=== PATIENT | male | born 1960 | race Caucasian/White ===

== ENCOUNTER 2017-01-08 16:14 | Outpatient (CLI) | payer BC ==
--- NOTE | 2017-01-08 16:43 | Diagnostic Imaging Report ---
Indication: COUGH Technique: 2 views of the chest Comparison: none. Findings: Lungs and pleural spaces are clear. Heart size is normal. Bones are unremarkable.. Impression: No acute process
== END 2017-01-08 18:14 | disposition home or self-care (01) ==
LOC: RAD 16:14
DX: Z01.818 Encounter for other preprocedural examination (principal); R05 Cough
CPT/HCPCS: 71020

== ENCOUNTER 2017-11-24 11:42 | Outpatient (CLI) | payer BC ==
--- NOTE | 2017-11-24 13:33 | Diagnostic Imaging Report ---
Indication: Cough Comparison: 01/08/2017 2 views of the chest obtained. Findings: Cardiomediastinal silhouette and pulmonary vascularity are within normal limits for age. The diaphragmatic contour is smooth and costophrenic angles are sharp. No pleural effusions are identified. The bones are unremarkable. Impression: No acute disease
== END 2017-11-24 13:42 | disposition home or self-care (01) ==
LOC: RAD 11:42
DX: Z01.818 Encounter for other preprocedural examination (principal); Z01.812 Encounter for preprocedural laboratory examination; R05 Cough
CPT/HCPCS: 71046

== ENCOUNTER 2017-12-15 09:06 | Day surgery (SDC) | payer BC ==
[~2017-12-15] VITALS: Ht 177.8 cm; Wt 77.1 kg
[2017-12-15] VITALS (7 sets, daily range): BP systolic 113–122; BP diastolic 61–74
--- NOTE | 2017-12-15 07:10 | Pre-Procedure Note/Attestation ---
Pre-Procedure Note/Attestation Complete Prior to Procedure Planned Procedure: right Procedure Narrative: rt knee scope, lateral meniscectomy, chondroplasty Indications for Procedure Pre-Operative Diagnosis: rt knee lateral meniscus tear Attestation I attest that I discussed the nature of the procedure; its benefits; risks and complications; and alternatives (and the risks and benefits of such alternatives ), prior to the procedure, with the patient (or the patient's legal business office representative). I attest that, if there was a reasonable possibility of needing a blood transfusion, the patient (or the patient's legal business office representative) was given the [facility] standardized written summary, pursuant to the Lazarus Christofer Blood Safety Act ([place] Health and Safety Code # 1645, as amended). I attest that I re-evaluated the patient just prior to the surgery and that there has been no change in the patient's H&P, except as documented below: NONE Durga Person MD Dec 15, 2017 07:10
[~2017-12-15 09:06] MED LIST: BIKTARVY 50-201 EACH PO; CRESTOR10 M2 ORAL; MYTESI PO; OMEPRAZOLE40 M1 ORAL; VIT D2 PO; ceFAZolin 1gm in D5W 55ml IVP ONE
[2017-12-15] MEDS ORDERED: Tylenol #3 tab (300mg/30mg) ORAL PRN (09:45)
[2017-12-15] MEDS ORDERED: HYDROmorphone 1mg/ml Carpuject SUBQ PRN (09:45)
[2017-12-15] MEDS ORDERED: D5 1/2NS 1,000 ML IV SCH (09:45)
[2017-12-15] MEDS ORDERED: Norco 5mg/325mg tab ORAL PRN (09:45)
[2017-12-15] MEDS ORDERED: celeBREX 200mg Cap **SURGERY PATIENTS ONLY ORAL ONE (09:46)
[2017-12-15] MEDS ORDERED: oxyCONTIN 20mg tab ORAL ONE (09:46)
[2017-12-15] MEDS: celeBREX 200mg Cap **SURGERY PATIENTS ONLY ORAL ONE ×2 (09:48→10:03)
[2017-12-15] MEDS: oxyCONTIN 20mg tab ORAL ONE ×2 (09:49→10:03)
[2017-12-15] MEDS ORDERED: Midazolam 2mg/2ml Inj ONE (10:09)
[2017-12-15] MEDS ORDERED: fentaNYL 100 mcg/2 mL IV ONE (10:09)
[2017-12-15] MEDS ORDERED: Propofol 200mg/20ml IV ONE (10:12)
[2017-12-15] MEDS ORDERED: Sodium Chloride 10ml vial INJ ONE (10:12)
[2017-12-15] MEDS: Ropivacaine 5mg/ml Vial 30ml INJ ONE (11:05)
--- NOTE | 2017-12-15 11:30 | Brief Operative Note ---
Immediate Post Operative Note Operative Note Chief Complaint: rt knee pain Pre-op Diagnosis: rt knee lateral meniscus tear Procedure: rt knee scope, lateral meniscectomy and chondroplasty Post-op Diagnosis: same as pre-op Findings: consistent w/pre-op dx studies Surgeon: md jamal Alteration Worker: amita lemon Anesthesiologist: md david Anesthesia: general Specimen: none Complications: none Condition: stable Fluids: ns Estimated Blood Loss: minimal Drains: none Implant(s) used?: No Waleska Lemon Dec 15, 2017 11:30
[2017-12-15] MEDS ORDERED: Hydromorphone 0.5mg/0.5ml inj IVPB PRN (11:45)
[2017-12-15] MEDS ORDERED: LR 1000ml 1,000 ML IVLG SCH (11:45)
[2017-12-15] MEDS ORDERED: DiphenhydrAMINE 50mg/ml Inj IVP PRN (11:45)
--- NOTE | 2017-12-15 11:50 | Anethesia Preoperative Eval ---
Anesthesia Pre-op PMH/ROS General Date of Evaluation: Dec 15, 2017 Time of Evaluation: 10:10 Anesthesiologist: Justin ASA Score: ASA 3 Mallampati Score Class I : Soft palate, uvula, fauces, pillars visible Class II: Soft palate, uvula, fauces visible Class III: Soft palate, base of uvula visible Class IV: Only hard plate visible Mallampati Classification: Class II Surgeon: Naya Diagnosis: Meniscus tear right knee Surgical Procedure: Knee scope, partial meniscectomy Family History: no anesthesia problems Allergies: Coded Allergies: METRONIDAZOLE (Verified Allergy, Severe, RASH , 01/19/17) Medications: see eMAR Past Medical History Cardiovascular: Denies: HTN, CAD, [place], valve dz, arrhythmia, other Pulmonary: Denies: asthma, COPD, [place], other Gastrointestinal/Genitourinary: Denies: GERD, CRI, ESRD, other Neurologic/Psychiatric: Denies: dementia, CVA, depression/anxiety, TIA, other Endocrine: Denies: DM, hypothyroidism, steroids, other HEENT: Denies: cataract (L), cataract (R), glaucoma, HYDABURG (L), HYDABURG (R), other Hematology/Immune: Denies: anemia, DVT, bleeding disorder, other Musculoskeletal/Integumentary: Denies: OA, RA, DJD, DDD, edema, other PMH Narrative: HIV+ PSxH Narrative: Colonoscopy Anesthesia Pre-op Phys. Exam Physician Exam Last Vital Signs Date Time Temp Pulse Resp B/P (MAP) Pulse Ox O2 Delivery O2 Flow Rate FiO2 12/15/17 09:36 Room Air 12/15/17 09:30 98.2 58 18 121/74 96 98.2 Constitutional: NAD Neurologic: CN 2-12 intact Cardiovascular: RRR, no M/R/G Respiratory: CTA Gastrointestinal: S/NT/ND Airway Exam Mallampati Score: Class II MO: full ROM: full Teeth: intact Anesthesia Pre-op A/P Labs WNL Studies Pre-op Studies: EKG - NSR Risk Assessment & Plan Assessment: HIV+ male for knee scope Plan: GA, LMA Status Change Before Surgery: No Pre-Antibiotics Drug: Ancef Given Within 1 Hr of Incision: Yes Time Given: 10:45 Lazarus Anderson MD Dec 15, 2017 11:50
--- NOTE | 2017-12-15 11:53 | Immediate Post-Op Evaluation ---
Immediate Post-Op Evalulation Immediate Post-Op Evalulation Procedure: Right knee scope, partial meniscectomy Date of Evaluation: Dec 15, 2017 Time of Evaluation: 11:50 IV Fluids: 800 Estimated Blood Loss: 10 Blood Pressure Systolic: 113 Blood Pressure Diastolic: 65 Pulse Rate: 73 Respiratory Rate: 15 O2 Sat by Pulse Oximetry: 98 Temperature (Fahrenheit): 97.7 Pain Score (1-10): 0 Nausea: No Vomiting: No Complications No complication Patient Status: awake, patent, none Hydration Status: adequate Drug: Ancef Given Within 1 Hr of Incision: Yes Time Given: 10:45 Lazarus Anderson MD Dec 15, 2017 11:53
--- NOTE | 2017-12-15 11:55 | 48 Hour Post Anesthesia Eval ---
Post Anesthesia Evaluation Procedure: Right knee scope, partial meniscectomy Date of Evaluation: Dec 15, 2017 Time of Evaluation: 12:00 Blood Pressure Systolic: 115 0: 65 Pulse Rate: 64 Respiratory Rate: 14 O2 Sat by Pulse Oximetry: 98 Airway: patent Nausea: No Vomiting: No Pain Intensity: 0 Hydration Status: adequate Cardiopulmonary Status: Stable Mental Status/LOC: patient returned to baseline Follow-up Care/Observations: As per surgery Post-Anesthesia Complications: No anesthetic complication Follow-up care needed: N/A Lazarus Anderson MD Dec 15, 2017 11:55
--- NOTE | 2017-12-15 23:15 | Operative Note - Dictated ---
DATE OF OPERATION: 12/15/2017 PREOPERATIVE DIAGNOSIS: Right knee lateral meniscus tearing. POSTOPERATIVE DIAGNOSES: 1. 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 2. Right knee free edge tear of the posterior horn body of lateral meniscus involving 20% lateral meniscus. 3. Left knee medial compartment grade 3 chondromalacia with central 5 x 5 mm grade 4 chondromalacia of the weightbearing zone. 4. Right knee degenerative partial anterior cruciate ligament tear without instability. PROCEDURE: 1. Right knee arthroscopy and extensive intra-articular shaving. 2. Right knee patellofemoral as well as medial femoral chondroplasty. 3. Right knee partial lateral meniscectomy involving 20% of posterior horn body of lateral meniscus. 4. Right knee debridement of the degenerative portion of the anterior cruciate ligament leaving most of the anterior cruciate ligament intact. SURGEON: Durga Person M.D. METAL SASH SETTER: Waleska Tuttle PA-C. ANESTHESIOLOGIST: Lazarus Anderson M.D. ANESTHESIA: LMA anesthesia. TOURNIQUET TIME: 30 minutes. EBL: Minimal. COMPLICATIONS: None. SURGICAL INDICATION: Patient is a 57-year-old male who sustained the above injury to his knee. The patient was treated non-operative initially, but this did not alleviate the patients symptoms. Therefore, after discussing all non-surgical and surgical options, and discussing all foreseeable risk and benefits of surgery, the patient opted for surgical treatment as described above. PATIENT POSITIONING: Patient was brought to the operating room table and placed supine. All pressure points were well padded. General Anesthesia was induced and a well padded tourniquet was placed on the thigh. The lateral post was placed and positioned to allow for opening of the medial compartment of the knee without placing pressure over the fibular head. Patients entire leg was prepped and draped in the usual sterile fashion. Time out was performed and preop abx was given and after exsanguinating the lower extremity, the tourniquet was inflated to 275 mm of mercury. EXAMINATION OF THE KNEE UNDER ANESTHESIA: Before prepping and draping the knee and while the patient was relaxed under general anesthesia, the knee was examined for ROM, and anterior and posterior, medial and lateral, posterolateral, and posteromedial instability. Pivot shift testing was performed. There was no evidence of loss of motion or instability and the pivot shift testing was negative. PORTAL PLACEMENT: The lateral portal was placed with the knee flexed to 90 degrees at the level of inferior border of the patella in line with the lateral border of the patella. A cm skin incision was made with an eleven blade, and using a blunt obturator, the capsule was gently penetrated. Sterile saline solution was then infused inside the knee with the aid of a pump set at 35 mm mercury pressure. Under direct visualization, placement of the medial portal was preliminary judged using a spinal needle, and it was subsequently established using the same technique as the lateral portal. Care was given not to injure the cutaneous branches of the medial Saphenous nerve or the subcutaneous veins. DIAGNOSTIC ARTHROSCOPY: The suprapatellar patellar pouch was visualized. There was no evidence of scar tissue or loose fragments. The medial and lateral patellar facets and trochlear groove articular cartilage was visualized. There was some chondral damage in the central trochlear groove. There was a small area of 6 x 7 mm chondral defect, which was full thickness in the central portion, otherwise there was just diffuse chondral damage with grade 3 chondromalacia in the central trochlear groove. The patellar medial and lateral facets were intact. The medial plica shelf and the corresponding medial femoral condyle articular cartilage were visualized. There was no significantly thickening of the medial plica shelf and there were no "kissing" lesion over the medial femoral condyle. The lateral gutter and the posterolateral corner of the knee were visualized. There were no loose bodies, and the popliteus tendon and other structures of the posterolateral corner of the knee were intact intra-articularly. At this point, the knee was placed in the figure of four position and the lateral compartment was entered. The lateral femoral condyle, lateral tibial plateau, and the anterior, body, and the posterior horn of the lateral meniscus were visualized and probed. The articular surfaces were intact and devoid of articular cartilage damage. There was a posterior horn body of the lateral meniscus tear involving 20% lateral meniscus. This was more of a free edge tear of the meniscus and to the very posterior portion of the lateral meniscus. The knee was then placed at 90 degree and the ACL and PCL were visualized and probed. There was some degenerative tears of the anterior cruciate ligament. Approximately 25% of the ACL was partially torn, however, 75% was intact and appeared to be functioning. The PCL was completely intact on visualization and probing and it had excellent tension. The medial compartment was then entered and the medial femoral condyle, medial tibial plateau, and the anterior, body, and the posterior horn of the medial meniscus were visualized and probed. There is a 5 x 5 mm grade 4 chondral damage over the medial femoral condyle in the central weightbearing zone. The medial meniscus was completely intact both on its undersurface and on the top. The medial gutter was visualized. There was no evidence of defect or loose fragments. The scope was then brought back to the patella femoral compartment. OPERATIVE ARTHROSCOPY: At this point, all loose debris and fragments were removed with the use of suction motorized shaver. Specific attention was given to assure all visible loose fragments were irrigated out of the knee joint with pump inflow and cannula outflow system. For patella femoral chondroplasty, the frayed articular cartilage of the undersurface of the patella and the trochlear groove were debrided using a motorized shaver. Suction was used to pull in the loose fragments and flaps of the cartilage and to minimize damage to the intact and well attached portion of the cartilage. This allowed for a smooth surface for the articular cartilage gliding. For lateral meniscectomy, at this point, attention was given to the lateral meniscus. Using combination of baskets and shannon, the torn portion of the lateral meniscus was removed. Attention was given to remove all displaced and unstable portion of the lateral meniscus while maintaining as much of the functional portion of the meniscus as possible. Approximately, 20% of the posterior horn body of the meniscus was removed in this fashion. The transition between the meniscectomy portion and intact portion of the meniscus was smoothed out with combination of small baskets and shannon. Excellent transition zone was obtained in this fashion. For medial compartment chondroplasty, care was given to the area of cartilage damage in the medial compartment. The fayed and loose fragments of articular cartilage were debrided using a motorized shaver. Suction was used to pull in the loose fragments and flaps of the cartilage and to minimize damage to the intact and well attached portion of the cartilage. This allowed for smooth surfaces for the articular cartilage. CONDITION AT DISCHARGE FROM OPERATING ROOM: The knee was irrigated with copious amount of normal saline at the end of the procedure. The scope was removed and the water was drained. The skin edges were re-approximated and sterile dressing was applied. All lap count and instrument counts were correct. Patient tolerated the procedure well without complications and was taken to the recovery room in stable conditions. Durga Person M.D. DR: YASH JOB#: [id number] CC:
== END 2017-12-15 13:15 | disposition home or self-care (01) ==
LOC: SUR 09:06
DX: M23.221 Derangement of posterior horn of medial meniscus due to old tear or injury, right knee (principal); B18.1 Chronic viral hepatitis B without delta-agent; G62.9 Polyneuropathy, unspecified; B00.9 Herpesviral infection, unspecified; E78.2 Mixed hyperlipidemia; R41.3 Other amnesia; Z85.828 Personal history of other malignant neoplasm of skin; Z88.8 Allergy status to other drugs, medicaments and biological substances
CPT/HCPCS: 94003; 94150; J2250; J2405